=== PATIENT | male | born 1990 | race Caucasian/White ===

== ENCOUNTER → 2017-07-29 | Outpatient (CLI) | payer BC ==
[2017-07-29 14:13] LABS: METHOD OF COLLECTION MASTURBATION; SEMEN TIME OF COLLECTION 1245
[2017-07-29 14:14] LABS: DAYS OF ABSTINENCE 1.7; SEMEN COLOR GRAY OR GRAY-WHITE (GRY/GRYWHTE); SEMEN VOLUME 2.1 ML (>1.5); TYPE OF SPECIMEN CONTAINER STERILE
[2017-07-29 14:31] LABS: SPERM VIABILITY STAIN NOT INDICATED % (>58%)
== END | disposition home or self-care (01) ==
LOC: C.LAB 13:07
DX: N46.9 Male infertility, unspecified (principal)

== ENCOUNTER → 2018-01-13 | Outpatient (CLI) | payer BC | END | disposition home or self-care (01) | LOC: C.LAB 13:02 | DX: N46.11 Organic oligospermia (principal) ==

== ENCOUNTER → 2018-01-27 | Outpatient (CLI) | payer BC | END | disposition home or self-care (01) | LOC: C.LABMFLN 10:16 | PROVIDERS: ATTEND Physician Assistant | DX: J02.9 Acute pharyngitis, unspecified (principal) ==